=== PATIENT | male | born 2000 | race Two or more races ===

== ENCOUNTER 2021-09-08 20:37 | Emergency (ER) | payer SELFPAY ==
[~2021-09-08] VITALS: Ht 172.7 cm; Wt 83.9 kg
[2021-09-08] MEDS ORDERED: SODIUM CHLORIDE 0.9% 1,000 ML IV ONE (20:45)
[2021-09-08 23:44] VITALS: BP 120/70
== END 2021-09-08 22:55 | disposition home or self-care (01) ==
LOC: EDBD 20:37 → ER 20:39
DX: T40.601A Poisoning by unspecified narcotics, accidental (unintentional), initial encounter (principal); F12.10 Cannabis abuse, uncomplicated; F17.210 Nicotine dependence, cigarettes, uncomplicated; Y92.89 Other specified places as the place of occurrence of the external cause
CPT/HCPCS: 93005; 96360; 96361; 99283; J7030